=== PATIENT | female | born 1960 ===

== ENCOUNTER 2019-07-12 08:24 | Emergency (ER) | payer BC ==
[2019-07-12] MEDS ORDERED: cefTRIAXone\\ROCEPHIN 1 GM VIAL ONE (09:12)
[2019-07-12] MEDS ORDERED: Lidocaine 1% 20 ML MDV ONE (09:12)
== END 2019-07-12 09:52 | disposition home or self-care (01) ==
LOC: MADERS 08:24
DX: J44.1 Chronic obstructive pulmonary disease with (acute) exacerbation (principal); J18.9 Pneumonia, unspecified organism; E11.9 Type 2 diabetes mellitus without complications; E78.5 Hyperlipidemia, unspecified; E78.00 Pure hypercholesterolemia, unspecified; I10 Essential (primary) hypertension; Z87.891 Personal history of nicotine dependence; Z79.899 Other long term (current) drug therapy; Z79.51 Long term (current) use of inhaled steroids
CPT/HCPCS: 96372; 99283; J0696; J1040; J2001